=== PATIENT | female | born 1970 | race Caucasian/White ===

== ENCOUNTER 2019-06-06 11:31 | Emergency (ER) | payer BC, OTHER ==
--- OUTSIDE RECORDS SUMMARY | 2019-06-06 12:39 | XMS REPORT | Continuity of Care Document ---
:1970 External Reference #:[id number] Author Name Gail Lal D.O. (transmitted by agent of provider Herber James) Address [address] [place] [id number] Care Team Providers Name Role Phone Gail Lal DO - Internal Care Team Information Toy Consultant Medicine [facility] Care Team Information Toy Consultant [phone] Problems Active Problems Provider Date Hypothyroidism Onset: 12/10/2018 Social History Type Date Description Comments Sex Unknown ETOH Use Rarely consumes alcohol Tobacco Use Start: Unknown Patient has never smoked Recreational Drug Use Denies Drug Use Smoking Status Reviewed: 12/31/18 Patient has never smoked Allergies, Adverse Reactions, Alerts Active Allergies Reaction Severity Comments Date Codeine 12/10/2018 Wheat 12/11/2018 Barley 12/11/2018 Gluten 12/11/2018 Medications Active Medications SIG Qnty Indications Ordering Provider Date Tamoxifen Citrate 1 by mouth every Gail Lal 12/17/2018 20mg day L., D.OGildardo Tablets Levothyroxine Sodium 1 by mouth every Unknown 75mcg day Tablets Zyrtec-D Allergy & one by mouth Unknown Congestion twice a day 5-120mg Tablets ER 12HR Naproxen 1 by mouth twice Unknown 500mg Tablets a day as needed with food Celebrex 1 by mouth twice Unknown 100mg Capsules a day Aspercreme Lidocaine apply every days Unknown Max Strength for 12 hours to 4% Patches area for pain Biotin 1 by mouth every Unknown 5000mcg Capsules day Magnesium 1 by mouth every Unknown 500mg Capsules day Zinc 1 by mouth every Unknown 30mg Capsules day Vitamin B-Complex 1 by mouth every Unknown Tablets day History Medications Azithromycin two tabs (500 6tabs J06.9 Gail Lal 12/31/2018 - 250mg mg) on first L., D.O. 04/21/2019 Tablets day, then 250 mg (1 tab) x 4 days Tamoxifen Citrate 1 by mouth Gail Lal 12/10/2018 - 20mg every day L., D.O. 12/17/2018 Tablets Immunizations CPT Code Status Date Vaccine Lot # [id number] Given 11/28/2013 Tdap (Adacel) Ages 7 And Above Only [id number] Vital Signs Date Vital Result Comment 04/22/2019 8:11am Weight 121.00 lb Heart Rate 72 /min BP Systolic 118 mmHg BP Diastolic 62 mmHg Height 58 inches 4'10" BMI (Body Mass Index) 25.3 kg/m2 12/31/2018 3:38pm Body Temperature 98.8 F Weight 114.00 lb Heart Rate 78 /min BP Systolic 100 mmHg BP Diastolic 62 mmHg Height 58 inches 4'10" BMI (Body Mass Index) 23.8 kg/m2 Results Test Acquired Date Facility Test Result H/L Range Note Laboratory test 04/25/2019 [facility] Rheumatoid < 10 IU/mL Normal <15 finding Factor C Reactive Protein 2.18 mg/L Normal <8.01 TSH (Thyroid Stimulating Horm) 1.52 mcIU/mL Normal 0.34-5.60 Free T4 1.15 ng/dL High 0.61-1.12 Erythrocyte Sed Rate 4 mm/Hr Normal 0-19 Anti Double Stranded Dna AB <12.3 IU/mL 1 Anti Nuclear Antibody 0.4 U 2 Cardiolipin Igg/Igm 04/25/2019 [facility] Phospholipid Ab IgM, < 9.4 MPL 3 S Phospholipid Ab IgG < 9.4 GPL 4 Laboratory test 04/25/2019 [facility] Phospholipid Ab IgA < 9.4 APL 5 finding Laboratory test 04/22/2019 [facility] Microbiology res 6 finding <SEE NOTE> Rout Urine W/ 04/22/2019 [facility] Color YELLOW Micro -RL Appearance CLEAR Spec Grav Urine 1.016 (1.003-1.030) PH Urine 8.0 High (5.0-7.5) Leuk Esterase NEGATIVE (Neg) Nitrite Urine NEGATIVE (Neg) Protein Urine NEGATIVE (Neg) Glucose Urine NEGATIVE (Neg) Ketone Urine NEGATIVE (Neg) Urobilinogen 0.2 mg/dL (0-1.0) Bilirubin Urine NEGATIVE (Neg) Blood/HGB Urine NEGATIVE (Neg) Epithelial Cells NEGATIVE [HPF] (Neg) Hyaline Casts 1.3 [LPF] (0-5) Bacteria NEGATIVE [HPF] (Neg) Urine WBC 0.6 [HPF] (0-8) Urine RBC 1.3 [HPF] (0-3) 7 CBC Auto Diff 03/29/2019 [facility] White Blood 5.9 10^3/uL Normal 3.5-10.8 Count Red Blood Count 3.83 10^6/uL Normal 3.70-4.87 Hemoglobin 12.5 g/dL Normal 12.0-16.0 Hematocrit 35 % Normal 35-47 Mean Corpuscular Volume 91 fL Normal 80-97 Mean Corpuscular Hemoglobin 33 pg High 27-31 Mean Corpuscular HGB Conc 36 g/dL Normal 31-36 Red Cell Distribution Width 13 % Normal 10-15 Platelet Count 51 10^3/uL Low 150-450 8 Mean Platelet Volume 9.1 fL Normal 7.4-10.4 Abs Neutrophils 4.6 10^3/uL Normal 1.5-7.7 Abs Lymphocytes 0.7 10^3/uL Low 1.0-4.8 Abs Monocytes 0.4 10^3/uL Normal 0-0.8 Abs Eosinophils 0.1 10^3/uL Normal 0-0.6 Abs Basophils 0.1 10^3/uL Normal 0-0.2 Abs Nucleated RBC 0.0 10^3/uL Granulocyte % 77.5 % Lymphocyte % 12.5 % Monocyte % 7.6 % Eosinophil % 1.4 % Basophil % 1.0 % Nucleated Red Blood Cells % 0.0 Leukemia/Lymphoma Phenot 03/29/2019 [facility] Path Interpretation (SEE NOTE) 9 2-8 Marker Path Interpret 9-15 Marker TNP Path Interpret > 16 Marker TNP Myelodysplastic 03/29/2019 [facility] FMDS Specimen Bone Marrow Syndrome,Fish FMDS Disclaimer See Comment 10 FMDS Released By See Comment 11 FMDS Reason for Referral See Comment 12 FMDS Method See Comment 13 FMDS Result See Comment 14 FMDS Result Summary Normal FMDS Result Table See Comment 15 FMDS Interpretation See Comment 16 Bone Marrow Chromosomes 03/29/2019 [facility] BM Result Summary Normal BM Chromosome Specimen Bone Marrow BM Referral Reason See Comment 17 BM Chromosome Method See Comment 18 BM Chromo Banding Method See Comment 19 BM Cromosome Results 46,XX[20] BM Chromosome Interpretation See Comment 20 Released By See Comment 21 CBC Auto Diff 03/18/2019 [facility] White Blood 6.1 10^3/uL Normal 3.5-10.8 Count Red Blood Count 3.77 10^6/uL Normal 3.70-4.87 Hemoglobin 12.2 g/dL Normal 12.0-16.0 Hematocrit 35 % Normal 35-47 Mean Corpuscular Volume 92 fL Normal 80-97 Mean Corpuscular Hemoglobin 32 pg High 27-31 Mean Corpuscular HGB Conc 35 g/dL Normal 31-36 Red Cell Distribution Width 12 % Normal 10-15 Platelet Count 49 10^3/uL Low 150-450 22 Mean Platelet Volume 8.8 fL Normal 7.4-10.4 Abs Neutrophils 4.8 10^3/uL Normal 1.5-7.7 Abs Lymphocytes 0.7 10^3/uL Low 1.0-4.8 Abs Monocytes 0.4 10^3/uL Normal 0-0.8 Abs Eosinophils 0.1 10^3/uL Normal 0-0.6 Abs Basophils 0.0 10^3/uL Normal 0-0.2 Abs Nucleated RBC 0.0 10^3/uL Granulocyte % 79.5 % Lymphocyte % 11.2 % Monocyte % 7.2 % Eosinophil % 1.3 % Basophil % 0.8 % Nucleated Red Blood Cells % 0.0 Von Willebrand 03/18/2019 [facility] Coagulation F VIII 145 % 55 - 200 23 Disease Profile Activity von Willebrand Factor Antigen 130 % 55 - 200 24 von Willebrand Factor Activity 113 % 55 - 200 25 von Willebrand Disease Interpr See Comment 26 Laboratory test 03/18/2019 [facility] Coagulation 141 % Abnormal 65 - 140 27 finding Factor IX Coagulation Factor II 116 % 75 - 145 28 Factor V Activity 108 % 70 - 165 29 Coagulation Factor VII Activit 170 % 65 - 180 30 CBC Auto Diff 01/16/2019 [facility] White Blood 4.6 10^3/uL Normal 3.5-10.8 Count Red Blood Count 4.03 10^6/uL Normal 3.70-4.87 Hemoglobin 13.2 g/dL Normal 12.0-16.0 Hematocrit 37 % Normal 35-47 Mean Corpuscular Volume 92 fL Normal 80-97 Mean Corpuscular Hemoglobin 33 pg High 27-31 Mean Corpuscular HGB Conc 36 g/dL Normal 31-36 Red Cell Distribution Width 12 % Normal 10-15 Platelet Count 43 10^3/uL Low 150-450 31 Mean Platelet Volume 9.1 fL Normal 7.4-10.4 Abs Neutrophils 3.3 10^3/uL Normal 1.5-7.7 Abs Lymphocytes 0.8 10^3/uL Low 1.0-4.8 Abs Monocytes 0.3 10^3/uL Normal 0-0.8 Abs Eosinophils 0.1 10^3/uL Normal 0-0.6 Abs Basophils 0.1 10^3/uL Normal 0-0.2 Abs Nucleated RBC 0.0 10^3/uL Granulocyte % 72.1 % Lymphocyte % 17.4 % Monocyte % 6.8 % Eosinophil % 2.5 % Basophil % 1.2 % Nucleated Red Blood Cells % 0.1 Comp Metabolic Panel 01/16/2019 [facility] Sodium 141 mmol/L Normal 135-145 Potassium 3.7 mmol/L Normal 3.5-5.0 Chloride 108 mmol/L Normal 101-111 Co2 Carbon Dioxide 27 mmol/L Normal 22-32 Anion Gap 6 mmol/L Normal 2-11 Calcium 9.2 mg/dL Normal 8.6-10.3 Albumin 4.1 g/dL Normal 3.2-5.2 Total Bilirubin 0.40 mg/dL Normal 0.2-1.0 Glucose 90 mg/dL Normal 70-100 Blood Urea Nitrogen 14 mg/dL Normal 6-24 Creatinine 0.90 mg/dL Normal 0.51-0.95 BUN/Creatinine Ratio 15.6 Normal 8-20 Total Protein 5.6 g/dL Low 6.4-8.9 Globulin 1.5 g/dL Low 2-4 Albumin/Globulin Ratio 2.7 Normal 1-3 Alkaline Phosphatase 61 U/L Normal 34-104 Alt 16 U/L Normal 7-52 Ast 26 U/L Normal 13-39 Egfr Non- 66.8 >60 Egfr 80.9 >60 32 Comp Metabolic Panel 12/21/2018 [facility] Sodium 140 mmol/L Normal 135-145 Potassium 3.8 mmol/L Normal 3.5-5.0 Chloride 107 mmol/L Normal 101-111 Co2 Carbon Dioxide 29 mmol/L Normal 22-32 Anion Gap 4 mmol/L Normal 2-11 Glucose 94 mg/dL Normal 70-100 Blood Urea Nitrogen 15 mg/dL Normal 6-24 Creatinine 0.71 mg/dL Normal 0.51-0.95 BUN/Creatinine Ratio 21.1 High 8-20 Calcium 9.1 mg/dL Normal 8.6-10.3 Total Protein 5.7 g/dL Low 6.4-8.9 Albumin 3.7 g/dL Normal 3.2-5.2 Globulin 2.0 g/dL Normal 2-4 Albumin/Globulin Ratio 1.9 Normal 1-3 Total Bilirubin 0.40 mg/dL Normal 0.2-1.0 Alkaline Phosphatase 47 U/L Normal 34-104 Alt 15 U/L Normal 7-52 Ast 25 U/L Normal 13-39 Egfr Non- 87.9 >60 Egfr 106.3 >60 33 Laboratory test 12/21/2018 [facility] Uric Acid 3.9 mg/dL Normal 2.3-6.6 finding Magnesium 2.0 mg/dL Normal 1.9-2.7 CBC Auto Diff 12/21/2018 [facility] White Blood 5.5 10^3/uL Normal 3.5-10.8 Count Red Blood Count 3.74 10^6/uL Normal 3.70-4.87 Hemoglobin 12.2 g/dL Normal 12.0-16.0 Hematocrit 34 % Low 35-47 Mean Corpuscular Volume 91 fL Normal 80-97 Mean Corpuscular Hemoglobin 33 pg High 27-31 Mean Corpuscular HGB Conc 36 g/dL Normal 31-36 Red Cell Distribution Width 12 % Normal 10-15 Platelet Count 29 10^3/uL Low 150-450 34 Mean Platelet Volume 9.5 fL Normal 7.4-10.4 Abs Neutrophils 4.2 10^3/uL Normal 1.5-7.7 Abs Lymphocytes 0.8 10^3/uL Low 1.0-4.8 Abs Monocytes 0.4 10^3/uL Normal 0-0.8 Abs Eosinophils 0.1 10^3/uL Normal 0-0.6 Abs Basophils 0.0 10^3/uL Normal 0-0.2 Abs Nucleated RBC 0.0 10^3/uL Granulocyte % 75.8 % Lymphocyte % 14.4 % Monocyte % 7.5 % Eosinophil % 1.6 % Basophil % 0.7 % Nucleated Red Blood Cells % 0.0 Comprehensive Met Panel-[facility] 12/18/2018 [facility] Sodium 142 mmol/L 135- 146 35 Potassium 3.7 mmol/L 3.5-5.2 Chloride# 107 mmol/L 97-110 36 Carbon Dioxide 29 mmol/L 24-34 Calcium 8.5 mg/dL 8.5-10.5 37 Glucose 96 mg/dL 70-105 BUN 12 mg/dL 6-26 Creatinine 0.7 mg/dL 0.5-1.4 Total Protein 5.4 g/dL Low 6.0-8.0 Albumin 3.5 g/dL Low 3.6-4.9 Globulin 1.9 g/dL Low 2.0-3.5 A/G Ratio 1.8 Ratio 1.0-2.2 Total Bilirubin 0.5 mg/dL 0.1-1.3 Alkaline Phosphatase 45 U/L 24-140 Alt 14 U/L 3-42 Ast 24 U/L 8-42 Anion Gap 6 mmol/L 5-15 38 Female Egfr 96 >60 39 Male Egfr 109 >60 40 Lipid 12/18/2018 [facility] Cholesterol 176 mg/dL 50-199 Triglycerides 59 mg/dL 30-200 HDL 85 mg/dL 35-85 41 Chol/ HDL Ratio 2.1 ratio Low 3.7-5.6 VLDL 12 mg/dL 2-29 LDL (Calc) 79 mg/dL 20-99 42 Laboratory test finding 12/18/2018 [facility] TSH 0.99 uIU/mL 0.35-4.94 1 REFERENCE VALUE <30.0 (Negative) Test Performed by: [facility] [address] [place] [address] Industrial Property Appraiser: Rock Duong M.D. Ph.D.; [facility]# [id number] 2 REFERENCE VALUE <=1.0 (Negative) Test Performed by: [place] [address] Industrial Property Appraiser: Rock Duong M.D. Ph.D.; CLIA# [id number] 3 REFERENCE VALUE <15.0 (Negative) 4 REFERENCE VALUE <15.0 (Negative) Test Performed by: [place] [address] Industrial Property Appraiser: Rock Duong M.D. Ph.D.; CLIA# [id number] 5 REFERENCE VALUE <15.0 (Negative) Test Performed by: [place] [address] Industrial Property Appraiser: Rock Duong M.D. Ph.D.; CLIA# [id number] 6 Microbiology results SOURCE Clean Catch Midstream FINAL RESULT No growth 7 Unless otherwise specified, testing performed by [facility] [address] [place] [id number] 8 Consistent with Previous Results Reported on 03/18/19 9 FINAL DIAGNOSIS: Specimen Source: Bone marrow Flow cytometry immunophenotypic analysis: No immunophenotypic abnormality identified. Interpretative data: Blasts: 1% of WBCs Lymphocytes: 4% of WBCs B-cells: 2% of WBCs with no evidence of light chain restriction or other immunophenotypic abnormality. T-cells/NK cells: No aberrant population detected. Markers tested: CD3, CD10, CD16, CD19, CD34, CD45, kappa surface light chains, lambda surface light chains, 7-AAD. Quality Assessment: Acceptable Viability: Acceptable Viable lymphocytes (7-AAD): 85% Specimen received within validated guidelines. A Gonzales-Giemsa stained slide prepared from the flow cytometry specimen was examined for quality purposes. Electronically signed by: Mike Arriaza MD 04/01/19 1013 Technical component performed by: [place] [address] Setter Off: Rock Duong II, MD, PhD. CORRECTED REPORT --- Corrected on 04/01/19 1017 --- Path Inter 2-8 previously reported as: FINAL DIAGNOSIS: Specimen Source: Bone marrow Flow cytometry immunophenotypic analysis: Interpretative data: Blasts: 1% Lymphocytes: B-cells: 2% of WBCs with no evidence of light chain restriction or other immunophenotypic abnormality. T-cells/NK cells: No aberrant population detected. Markers tested: CD3, CD10, CD16, CD19, CD34, CD45, kappa surface light chains, lambda surface light chains, 7-AAD. Quality Assessment: Acceptable Viability: Acceptable Viable lymphocytes (7-AAD): 85% Specimen received within validated guidelines. A Gonzales-Giemsa stained slide prepared from the flow cytometry specimen was examined for quality purposes. Electronically signed by: Mike Arriaza MD 04/01/19 1013 Technical component performed by: [place] [address] Setter Off: Rock Duong II, MD, PhD. 10 Applicable to Analyte Specific Reagent (ASR) and Laboratory Developed Tests (LDT). This test was developed and its performance characteristics determined by [facility] in a manner consistent with CLIA requirements. It has not been cleared or approved by the U.S. Food and Drug Administration. This FISH test does not rule out other chromosome abnormalities. 11 RESULT: Johny Montoya M.D. Test Performed by: [place] [address] Industrial Property Appraiser: Rock Duong M.D. 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 14 RESULT: Interphase FISH is normal for all loci studied. 15 Abnormality Name Result Abn% Cutoff% inv(3) RPN1/MECOM fusion Normal <0.6 -5q31(Z9O834x3,EGR1x1) Normal <9.5 -5(S2X647,EGR1)x1 Normal <3.5 -7q31(D7Z1x2,U8B174g5) Normal <4.5 -7(D7Z1,H7L668)x1 Normal <3.5 +8(D8Z2,MYC)x3 Normal <2.5 11q23(MLL sep) Normal <4.0 -17p13.1(TP53x1,K52Z7a1) Normal <9.5 -17(TP53,D17Z1)x1 Normal <5.5 -20q12(C01C196g3,76medaw1) Normal <9.5 16 This result is within normal limits for the MDS FISH panel. Additional cytogenetic studies are reported separately. 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 20 No clonal abnormality was apparent. Additional cytogenetic studies are reported separately. 21 RESULT: Johny Montoya M.D. Test Performed by: [address] [address] Industrial Property Appraiser: Rock Duong M.D. Ph.D.; CLIA# [id number] 22 Consistent with Previous Results Reported on 02/01/19 23 ADDITIONAL INFORMATION This test has been modified from the fiscal analyst's instructions. Its performance characteristics were determined by [facility] in a manner consistent with CLIA requirements. This test has not been cleared or approved by the U.S. Food and Drug Administration. 24 ADDITIONAL INFORMATION This test has been modified from the fiscal analyst's instructions. Its performance characteristics were determined by [facility] in a manner consistent with CLIA requirements. This test has not been cleared or approved by the U.S. Food and Drug Administration. 25 ADDITIONAL INFORMATION This test has been modified from the fiscal analyst's instructions. Its performance characteristics were determined by [facility] in a manner consistent with CLIA requirements. This test has not been cleared or approved by the U.S. Food and Drug Administration. Test Performed by: [place] [address] Industrial Property Appraiser: Rock Duong M.D. Ph.D.; CLIA# [id number] 26 IMPRESSION: No laboratory evidence of von Willebrand disease (VWD). COMMENTS: Normal or elevated factor VIII coagulant activity and/or von Willebrand factor (VWF) antigen and/or VWF activity [latex immunoassay] provide no evidence for von Willebrand disease (VWD). NOTE: VWF antigen and/or VWF latex immunoassay activity and/or factor VIII may be increased above baseline levels by acute or chronic inflammation, stress or adrenergic stimuli, or estrogen and oral contraceptive (OCP) therapy, liver disease or recent infusion of plasma, cryoprecipitate, desmopressin (DDAVP) or VWF concentrates and mask the diagnosis of mild von Willebrand disease (VWD). Note: Apparently normal individuals of blood group "O" may have somewhat lower factor VIII and von Willebrand factor (VWF) than individuals of other blood groups, such that (for example) those of group "O" may have VWF antigen as low as 40-50%, whereas normals of nongroup "O" generally have VWF antigen above 60-70%. Suggest clinical correlation. 27 ADDITIONAL INFORMATION This test has been modified from the fiscal analyst's instructions. Its performance characteristics were determined by [facility] in a manner consistent with CLIA requirements. This test has not been cleared or approved by the U.S. Food and Drug Administration. Test Performed by: [place] [address] Industrial Property Appraiser: Rock Duong M.D. Ph.D.; CLIA# [id number] 28 ADDITIONAL INFORMATION This test has been modified from the fiscal analyst's instructions. Its performance characteristics were determined by [facility] in a manner consistent with CLIA requirements. This test has not been cleared or approved by the U.S. Food and Drug Administration. Test Performed by: [place] [address] Industrial Property Appraiser: Rock Duong M.D. Ph.D.; CLIA# [id number] 29 ADDITIONAL INFORMATION This test has been modified from the fiscal analyst's instructions. Its performance characteristics were determined by [facility] in a manner consistent with CLIA requirements. This test has not been cleared or approved by the U.S. Food and Drug Administration. Test Performed by: [place] [address] Industrial Property Appraiser: Rock Duong M.D. Ph.D.; CLIA# [id number] 30 ADDITIONAL INFORMATION This test has been modified from the fiscal analyst's instructions. Its performance characteristics were determined by [facility] in a manner consistent with CLIA requirements. This test has not been cleared or approved by the U.S. Food and Drug Administration. Test Performed by: [place] [address] Industrial Property Appraiser: Rock Duong M.D. Ph.D.; CLIA# [id number] 31 Consistent with Previous Results Reported on 01/02/19 32 Because ethnic data is not always readily available, this report includes an eGFR for both -Americans and non- Americans. The National Kidney Disease Education Program (NKDEP) does not endorse the use of the MDRD equation for patients that are not between the ages of 18 and 70, are , have extremes of body size, muscle mass, or nutritional status, or are non- or non-. According to the National Kidney Foundation, irrespective of diagnosis, the stage of the disease is based on the level of kidney function: Stage Description GFR(mL/min/1.73 m(2)) 1 Kidney damage with normal or decreased GFR 90 2 Kidney damage with mild decrease in GFR 60-89 3 Moderate decrease in GFR 30-59 4 Severe decrease in GFR 15-29 5 Kidney failure <15 (or dialysis) 33 Because ethnic data is not always readily available, this report includes an eGFR for both -Americans and non- Americans. The National Kidney Disease Education Program (NKDEP) does not endorse the use of the MDRD equation for patients that are not between the ages of 18 and 70, are , have extremes of body size, muscle mass, or nutritional status, or are non- or non-. According to the National Kidney Foundation, irrespective of diagnosis, the stage of the disease is based on the level of kidney function: Stage Description GFR(mL/min/1.73 m(2)) 1 Kidney damage with normal or decreased GFR 90 2 Kidney damage with mild decrease in GFR 60-89 3 Moderate decrease in GFR 30-59 4 Severe decrease in GFR 15-29 5 Kidney failure <15 (or dialysis) 34 Consistent with Previous Results Reported on 12/03/18 35 Updated reference range on new analyzer 36 Updated reference range on new analyzer 37 Updated reference range 07-11-2018 38 Updated Reference Range 39 Concerning GFR Guidelines for Americans: Normal function or mild renal disease, if clinically at risk: >/= 60 mL/min Moderately decreased: 30-59 Severely decreased: 15-29 Renal failure: <15 There is reduced accuracy above 60ml/min/1.73 m squared, but the numeric value may be clinically useful in the near 60 range 40 Concerning GFR Guidelines: Normal function or mild renal disease, if clinically at risk: >/= 60 mL/min Moderately decreased: 30-59 Severely decreased: 15-29 Renal failure: <15 There is reduced accuracy above 60ml/min/1.73 m squared, but the numeric value may be clinically useful in the near 60 range Glomerular Filtration Rate (GFR) is estimated based on the CKD-EPI equation, which assumes a steady state for creatinine as recommended by the National Kidney Disease Education Program in conjunction with the National Institutes of Health and the National Kidney Foundation. Clinical conditions in which it may be necessary to measure GFR by using clearance methods include extremes of age and body size, severe malnutrition or obesity, diseases of skeletal muscle, paraplegia or quadriplegia, vegetarian diet, rapidly changing kidney function, and calculation of the dose of potentially toxic drugs that are excreted by the kidneys. 41 Per NCEP ATP III Guidelines: Results lower than 40 mg/dL are suggestive of increased risk for coronary artery disease. Results > or = to 60 mg/dL are considered a negative risk factor. 42 Per NCEP ATP III Guidelines: Normal Population <130 Patients with medical conditions: CHD/DM Optimal: <100 Borderline high: 130-159 High: 160-189 Very high: >189 Procedures Date Code Description Status 09/17/2018 [id number] Mammogram Completed 09/11/2017 [id number] Mammogram Completed 08/08/2017 [id number] Mammogram Completed 09/05/2016 [id number] Mammogram Completed 02/17/2016 [id number] Bone Mineral Density Test Completed 10/03/2013 [id number] Mammogram Completed 04/03/2013 [id number] Mammogram Completed 09/07/2004 [id number] Colonoscopy Completed Medical Devices Description No Information Available Encounters Type Date Location Provider Dx Diagnosis Office Visit 04/22/2019 Gail Lal, E03.9 Hypothyroidism, 8:00a DO Gail Lal, D.O. 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 respiratory infection, unspecified Office Visit 12/17/2018 1:00p Gail Lal, E03.9 Hypothyroidism, DO Gail Lal, D.O. 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 04/22/2019 Z68.25 Body mass index (BMI) 25.0-25.9, adult Gail Lal D.O. 04/22/2019 E03.9 Hypothyroidism, unspecified [facility] 12/31/2018 J06.9 Acute upper respiratory infection, Gail Lal D.O. unspecified 12/18/2018 E03.9 Hypothyroidism, unspecified Gail Lal D.O. 12/18/2018 E03.9 Hypothyroidism, unspecified Nurse Schedule J2 12/18/2018 E03.9 Hypothyroidism, unspecified [facility] 12/17/2018 E03.9 Hypothyroidism, unspecified Gail Lal D.O. 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 12/17/2018 K90.0 Celiac disease Gail Lal D.O. 12/17/2018 M85.80 Other specified disorders of bone Gail Lal D.O. density and structure, unspecified site Plan of Treatment Future Appointment(s):12/26/2019 8:00 am - Gail Lal D.O. at [facility] DO Hali Functional Status Description No Information Available Mental Status Description No Information Available Referrals Description No Information Available
--- OUTSIDE RECORDS SUMMARY | 2019-06-06 12:40 | XMS REPORT | Summary of Care ---
:1970 Author Organization [facility] Address [address] [place] [address] Care Team Providers Name Role Phone Gail Lal DO Primary Care Provider Reason for Visit Reason Comments Thyroid Problem Encounter Details Date Type Department Care Team Description 05/17/2019 Office Visit [facility] Jesus, Ayleen, Acquired hypothyroidism (Primary Dx); [facility] Vitamin D deficiency [address] [id number] Allergies Active Allergy Reactions Severity Noted Date Comments Barley Grass 11/01/2016 Codeine Hives, Shortness Of Breath High 08/07/2012 Gluten Meal 11/01/2016 Wheat Bran 11/01/2016 documented as of this encounter (statuses as of 05/17/2019) Medications Medication Sig Dispensed Refills Start End Date Status Date Multiple Vitamin Take by mouth 0 Active (MULTIVITAMINS PO) daily Misc. Devices Use as 2 each 0 Active (DURABLE MEDICAL directed. 6 EQUIPMENT SEE SIG) compression MISCIndications: sleeve and Malignant neoplasm guantlet of upper-outer quadrant of left female breast, S/P lumpectomy, left breast tamoxifen take 1 tablet 0 Active (NOLVADEX) 20 MG by mouth once 7 tablet daily Cholecalciferol Take 5,000 0 Active (VITAMIN D PO) Units by mouth daily Biotin 5000 MCG Take 5,000 mcg 0 Active CAPS by mouth daily loratadine Take 10 mg by 0 Active (CLARITIN) 10 MG mouth daily tablet Levothyroxine Take 1 tablet 90 tablet 1 Active Sodium 75 MCG Oral by mouth daily 0 Tablet (SYNTHROID, LEVOTHROID)Indicati ons: Acquired hypothyroidism levothyroxine take 1 tablet 90 tablet 1 05/17/19 Discontinued (SYNTHROID, by mouth once 9 20 (Reorder) LEVOTHROID) 75 MCG daily tablet documented as of this encounter (statuses as of 05/17/2019) Active Problems Problem Noted Date Thrombocytopenia 03/25/2019 BreastNext negative January 2016 09/18/2018 Osteopenia of hip 04/06/2018 Personal history of malignant neoplasm of breast 03/19/2018 Use of tamoxifen (Nolvadex) 03/19/2018 At high risk for breast cancer 09/11/2017 Celiac disease 04/05/2017 Malignant neoplasm of upper-outer quadrant of left female breast 01/13/2016 Cancer Staging: Clinical: Stage IA (T1c, N0, M0) - Signed by Erica Callejas MD on 02/11/2016 Pathologic stage from 02/10/2016: Stage IA (T1c, N0(i+), cM0) - Signed by Erica Callejas MD on 02/11/2016 Breast mass, left 01/11/2016 Abnormal finding on breast imaging 01/11/2016 Dense breasts 01/15/2015 Family history of breast cancer 01/15/2015 Breast cyst 01/13/2015 Breast calcifications on mammogram 01/13/2015 Hypothyroidism 08/07/2012 Vitamin D deficiency 08/07/2012 documented as of this encounter (statuses as of 05/17/2019) Social History Tobacco Use Types Packs/Day Years Used Date Never Smoker Smokeless Tobacco: Never Used Alcohol Use Drinks/Week oz/Week Comments Yes 0 Standard drinks or equivalent 0.0 rare Sex Assigned at Date Recorded Not on file Job Start Date Occupation Industry Not on file Not on file Not on file Travel History Travel Start Travel End No recent travel history available. documented as of this encounter Last Filed Vital Signs Vital Sign Reading Time Taken Comments Blood Pressure 90/64 05/17/2019 1:07 PM EST Pulse 78 05/17/2019 1:07 PM EST Temperature - - Respiratory Rate 16 05/17/2019 1:07 PM EST Oxygen Saturation - - Inhaled Oxygen Concentration - - Weight 53.8 kg (118 lb 9.6 oz) 05/17/2019 1:07 PM EST Height 149 cm (4' 10.66") 05/17/2019 1:07 PM EST Body Mass Index 24.23 05/17/2019 1:07 PM EST documented in this encounter Progress Notes Ayleen Lee MBBS - 05/17/2019 1:00 PM EST Brittany Fitch is a 48 y.o. female who presents today for follow up of hypothyroidism. HPI: Hypothyroidism diagnosed 2007 She is taking LT4 75 mcg daily she takes it regular with water and wait 30 min before eat and drink She denies any hypo and hyperthyroid symptoms C/o extreme fatigue Also sees hematology for low platelets and received rituximab infusions in 2019. Strong family history of thyroid disease No thyorid cancer Regular periods. 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 IBS (irritable bowel syndrome) Lactose intolerance Osteopenia hip PONV (postoperative nausea and vomiting) Primary hypothyroidism 2004 Scoliosis Spinal stenosis Vitamin A deficiency Vitamin D insufficiency Past Surgical History: Procedure Laterality Date BREAST BIOPSY COLONOSCOPY INGUINAL HERNIA REPAIR 1994 LA MASTECTOMY, PARTIAL Left 02/02/2016 Procedure: LEFT BREAST NEEDLE LOC AND LUMPECTOMY, AND LEFT SENTINEL LYMPH NODE BIOPSY; Surgeon: Erica Callejas MD; Location: OR ; Service: General; Laterality: Left; TONSILLECTOMY 1995 WRIST DEBRIDEMENT Left SOCIAL HISTORY: Social History Tobacco Use Smoking status: Never Smoker Smokeless tobacco: Never Used Substance Use Topics Alcohol use: Yes Alcohol/week: 0.0 standard drinks Comment: rare Drug use: No Family History Problem Relation Age of Onset Heart disease Father Stomach cancer Maternal Grandmother 43 yrs, Stroke Maternal Grandfather Heart disease Paternal Grandmother Cancer Paternal Grandfather Breast cancer Mother Hypertension Mother Thyroid disease Mother graves Hypertension Brother Thyroid disease Sister Allergies Allergen Reactions Codeine Hives and Shortness Of Breath Barley Grass Gluten Meal Wheat Bran Current Outpatient Medications Medication Sig Dispense Refill Biotin 5000 MCG CAPS Take 5,000 mcg by mouth daily Cholecalciferol (VITAMIN D PO) Take 5,000 Units by mouth daily Levothyroxine Sodium 75 MCG Oral Tablet (SYNTHROID, LEVOTHROID) Take 1 tablet by mouth daily 90 tablet 1 loratadine (CLARITIN) 10 MG tablet Take 10 mg by mouth daily Misc. Devices (DURABLE MEDICAL EQUIPMENT SEE SIG) MISC Use as directed. compression sleeve and guantlet 2 each 0 Multiple Vitamin (MULTIVITAMINS PO) Take by mouth daily tamoxifen (NOLVADEX) 20 MG tablet take 1 tablet by mouth once daily 0 No current facility-administered medications for this visit. ROS: The full 10-point review of systems is otherwise negative except as noted in HPI. PHYSICAL EXAM: Vitals: 05/17/19 1307 BP: 90/64 BP Location: Right arm Patient Position: Sitting Cuff size: Regular Pulse: 78 Resp: 16 Weight: 53.8 kg (118 lb 9.6 oz) Height: 1.49 m (4' 10.66") Body mass index is 24.23 kg/m. Wt Readings from Last 3 Encounters: 05/17/19 53.8 kg (118 lb 9.6 oz) 03/25/19 49.9 kg (110 lb) 09/17/18 49.9 kg (110 lb) BP Readings from Last 3 Encounters: 05/17/19 90/64 03/25/19 116/72 09/17/18 102/69 GENERAL: Awake, alert and in no apparent distress EYES: conjunctivae are pink and moist, no exophthalmos, lag or stare ENT/MOUTH: dentition: ok, tongue normal THYROID: thyroid is palapble, no nodules, non-tender LYMPHATIC: no cervical or supraclavicular adenopathy CARDIOVASCULAR: regular rate and rhythm, no murmur, -ve edema RESPIRATORY: full breath sounds bilaterally with normal expansion GASTROINTESTINAL: soft, non-tender, normal bowel sounds MUSCULOSKELETAL: normal muscle mass, normal gait SKIN: no breakdown, nails ok NEUROLOGIC: PERRL, EOMI, no tremor of the outstretched hands PSYCHIATRIC: mood and affect are normal OUTSIDE RECORDS: reviewed. Pertinent positives summarized in HPI LABS: Lab Results Component Value Date CHO 199 03/30/2011 TRIG 50 03/30/2011 HDL 87 03/30/2011 LDL 102 (H) 03/30/2011 VLDL 10 (L) 03/30/2011 Lab Results Component Value Date CREATININE 0.79 08/12/2016 No components found for: EGFR No results found for: MICROALBCR Lab Results Component Value Date AST 23 08/12/2016 Lab Results Component Value Date ALT 13 08/12/2016 Lab Results Component Value Date TSH 1.640 04/06/2018 [id number] 1.23 07/27/2016 [id number] 8.18 07/27/2016 Lab Results Component Value Date FREET4 1.58 12/22/2015 Lab Results Component Value Date [id number] 24 (L) 04/06/2018 IMAGING: PATHOLOGY: A/P:This is a 48 y.o. female with a history of hypothyoridism here for follow up. 1. Hypothyroidism possibly Paul's as strong family history of autoimmune disease On Lt4 75 mcg daily She is clinically euthyroid TSH last week wnl. 2. Vitamin D deficiency On D3 5000 IU daily Will check the level in next visit 3. Celiac disease On gluten free diet 4. Osteopenia: DXA 2017 as per pt, no report seen. - continue calcium and vitamin D supplements and to obtain 1200 mg calcium and 1200 units of vitaminD daily respectively from food and supplements. - fall precautions reviewed, written information provided. - encouraged weight bearing exercises. Advised to check with pcp. RTC 1 year Orders Placed This Encounter Levothyroxine Sodium 75 MCG Oral Tablet (SYNTHROID, LEVOTHROID) documented in this encounter Plan of Treatment Date Type Specialty Care Team Description 09/23/2019 Appointment Radiology Erica Callejas MD [address] [place] [address] 09/23/2019 Appointment Radiology Erica Callejas MD [address] [place] [address] 09/23/2019 Office Visit Breast Surgery Juana Shay PA [address] [address] 05/18/2020 Office Visit Endocrinology JesusLadonnahi, JAMES [address] [place] [address] [phone] Health Maintenance Due Date Last Done Comments MMR Vaccines (1 of 1 - 09[birth year]03/1971 Standard series) Varicella Vaccines (1 of 2 - 09/03/1971 2-dose childhood series) Pneumococcal Vaccine: 1976 Pediatrics (0 to 5 Years) and At-Risk Patients (6 to 64 Years) (1 of 3 - PCV13) HIV Screening 09/03/1983 Cervical Cancer Screening 5 09/03/1991 years DTaP,Tdap,and Td Vaccines (3 05/28/2014 11/28/2013, - Td) 10/20/2009 Influenza Vaccine 12/11/2018 Pneumococcal Vaccine: 65+ 09/03/2035 Years (1 of 2 - PCV13) HIB Vaccines Aged Out No longer eligible based on patient's age to complete this topic Hepatitis A Vaccines Aged Out No longer eligible based on patient's age to complete this topic Hepatitis B Vaccines Aged Out No longer eligible based on patient's age to complete this topic IPV Vaccines Aged Out No longer eligible based on patient's age to complete this topic documented as of this encounter Implants Implanted Type 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
--- OUTSIDE RECORDS SUMMARY | 2019-06-06 12:40 | XMS REPORT | Continuity of Care Document ---
:1970 External Reference #:[id number] Author Name Gail Lal D.O. 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 [facility] Care Team Information Security Systems Technician Problems Active Problems Provider Date Hypothyroidism Onset: [...] CPT Code Status Date Vaccine Lot # [id number] Given 11/28/2013 Tdap (Adacel) Ages 7 And Above Only [id number] Vital Signs Date Vital Result Comment 04/22/2019 [...] Test Result H/L Range Note Laboratory test 04/22/2019 [facility] Urine Culture <pending> finding Rout Urine W/ Micro 04/22/2019 [facility] Color YELLOW -RL Appearance CLEAR Spec Grav Urine 1.016 [...] [HPF] (0-8) Urine RBC 1.3 [HPF] (0-3) 1 CBC Auto Diff 03/29/2019 [facility] White Blood 5.9 10^3/uL Normal 3.5-10.8 Count Red Blood Count 3.83 10^6/uL Normal 3.70-4.87 Hemoglobin 12.5 g/dL Normal 12.0-16.0 Hematocrit 35 % Normal 35-47 Mean Corpuscular Volume 91 fL Normal 80-97 Mean Corpuscular Hemoglobin 33 pg High 27-31 Mean Corpuscular HGB Conc 36 g/dL Normal 31-36 Red Cell Distribution Width 13 % Normal 10-15 Platelet Count 51 10^3/uL Low 150-450 2 Mean Platelet Volume 9.1 fL Normal 7.4-10.4 [...] Blood Cells % 0.0 Leukemia/Lymphoma Phenot 03/29/2019 [facility] Path Interpretation (SEE NOTE) 3 2-8 Marker Path Interpret 9-15 Marker TNP Path Interpret > 16 Marker TNP Myelodysplastic 03/29/2019 [facility] FMDS Specimen Bone Marrow Syndrome,Fish FMDS Disclaimer See Comment 4 FMDS Released By See Comment 5 FMDS Reason for Referral See Comment 6 FMDS Method See Comment 7 FMDS Result See Comment 8 FMDS Result Summary Normal FMDS Result Table See Comment 9 FMDS Interpretation See Comment 10 Bone Marrow Chromosomes 03/29/2019 [facility] BM Result Summary Normal BM Chromosome Specimen Bone Marrow BM Referral Reason See Comment 11 BM Chromosome Method See Comment 12 BM Chromo Banding Method See Comment 13 BM Cromosome Results 46,XX[20] BM Chromosome Interpretation See Comment 14 Released By See Comment 15 CBC Auto Diff 03/18/2019 [facility] White Blood 6.1 10^3/uL Normal 3.5-10.8 Count Red Blood Count 3.77 10^6/uL Normal 3.70-4.87 Hemoglobin 12.2 g/dL Normal 12.0-16.0 Hematocrit 35 % Normal 35-47 Mean Corpuscular Volume 92 fL Normal 80-97 Mean Corpuscular Hemoglobin 32 pg High 27-31 Mean Corpuscular HGB Conc 35 g/dL Normal 31-36 Red Cell Distribution Width 12 % Normal 10-15 Platelet Count 49 10^3/uL Low 150-450 16 Mean Platelet Volume 8.8 fL Normal 7.4-10.4 [...] Blood Cells % 0.0 Von Willebrand 03/18/2019 [facility] Coagulation F VIII 145 % 55 - 200 17 Disease Profile Activity von Willebrand Factor Antigen 130 % 55 - 200 18 von Willebrand Factor Activity 113 % 55 - 200 19 von Willebrand Disease Interpr See Comment 20 Laboratory test 03/18/2019 [facility] Coagulation 141 % Abnormal 65 - 140 21 finding Factor IX Coagulation Factor II 116 % 75 - 145 22 Factor V Activity 108 % 70 - 165 23 Coagulation Factor VII Activit 170 % 65 - 180 24 CBC Auto Diff 01/16/2019 [facility] White Blood 4.6 10^3/uL Normal 3.5-10.8 Count Red Blood Count 4.03 10^6/uL Normal 3.70-4.87 Hemoglobin 13.2 g/dL Normal 12.0-16.0 Hematocrit 37 % Normal 35-47 Mean Corpuscular Volume 92 fL Normal 80-97 Mean Corpuscular Hemoglobin 33 pg High 27-31 Mean Corpuscular HGB Conc 36 g/dL Normal 31-36 Red Cell Distribution Width 12 % Normal 10-15 Platelet Count 43 10^3/uL Low 150-450 25 Mean Platelet Volume 9.1 fL Normal 7.4-10.4 [...] Cells % 0.1 Comp Metabolic Panel 01/16/2019 [facility] Sodium 141 mmol/L Normal 135-145 Potassium 3.7 [...] Egfr Non- 66.8 >60 Egfr 80.9 >60 26 Comp Metabolic Panel 12/21/2018 [facility] Sodium 140 mmol/L Normal 135-145 Potassium 3.8 [...] Egfr Non- 87.9 >60 Egfr 106.3 >60 27 Laboratory test 12/21/2018 [facility] Uric Acid 3.9 mg/dL Normal 2.3-6.6 finding Magnesium 2.0 mg/dL Normal 1.9-2.7 CBC Auto Diff 12/21/2018 [facility] White Blood 5.5 10^3/uL Normal 3.5-10.8 Count Red Blood Count 3.74 10^6/uL Normal 3.70-4.87 Hemoglobin 12.2 g/dL Normal 12.0-16.0 Hematocrit 34 % Low 35-47 Mean Corpuscular Volume 91 fL Normal 80-97 Mean Corpuscular Hemoglobin 33 pg High 27-31 Mean Corpuscular HGB Conc 36 g/dL Normal 31-36 Red Cell Distribution Width 12 % Normal 10-15 Platelet Count 29 10^3/uL Low 150-450 28 Mean Platelet Volume 9.5 fL Normal 7.4-10.4 [...] 12/18/2018 [facility] Sodium 142 mmol/L 135- 146 29 Potassium 3.7 mmol/L 3.5-5.2 Chloride# 107 mmol/L 97-110 30 Carbon Dioxide 29 mmol/L 24-34 Calcium 8.5 mg/dL 8.5-10.5 31 Glucose 96 mg/dL 70-105 BUN 12 mg/dL 6-26 Creatinine 0.7 mg/dL 0.5-1.4 Total Protein 5.4 g/dL Low 6.0-8.0 Albumin 3.5 g/dL Low 3.6-4.9 Globulin 1.9 g/dL Low 2.0-3.5 A/G Ratio 1.8 Ratio 1.0-2.2 Total Bilirubin 0.5 mg/dL 0.1-1.3 Alkaline Phosphatase 45 U/L 24-140 Alt 14 U/L 3-42 Ast 24 U/L 8-42 Anion Gap 6 mmol/L 5-15 32 Female Egfr 96 >60 33 Male Egfr 109 >60 34 Lipid 12/18/2018 [facility] Cholesterol 176 mg/dL 50-199 Triglycerides 59 mg/dL 30-200 HDL 85 mg/dL 35-85 35 Chol/ HDL Ratio 2.1 ratio Low 3.7-5.6 VLDL 12 mg/dL 2-29 LDL (Calc) 79 mg/dL 20-99 36 Laboratory test finding 12/18/2018 [facility] TSH 0.99 uIU/mL 0.35-4.94 1 Unless otherwise specified, testing performed by [facility] [address] [place] [address] 2 Consistent with Previous Results Reported on 03/18/19 3 FINAL DIAGNOSIS: Specimen Source: Bone marrow Flow [...] MD 04/01/19 1013 Technical component performed by: [place] [address] Teacher Assistant: Rock Duong II, MD, PhD. CORRECTED REPORT [...] MD 04/01/19 1013 Technical component performed by: [place] [id number] Teacher Assistant: Rock Duong II, MD, PhD. 4 Applicable to Analyte Specific Reagent (ASR) and Laboratory Developed Tests (LDT). This test was developed and its performance characteristics determined by [facility] in a manner consistent with CLIA requirements. It has not been cleared or approved by the U.S. Food and Drug Administration. This FISH test does not rule out other chromosome abnormalities. 5 RESULT: Johny Montoya M.D. Test Performed by: [place] [id number] Heel Washer Stringing Machine Operator: Rock Duong M.D. 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 8 RESULT: Interphase FISH is normal for all loci studied. 9 Abnormality Name Result Abn% Cutoff% inv(3) RPN1/MECOM fusion Normal <0.6 -5q31(C4Z968u1,EGR1x1) Normal <9.5 -5(G7P636,EGR1)x1 Normal <3.5 -7q31(D7Z1x2,B7K190d2) Normal <4.5 -7(D7Z1,J2E433)x1 Normal <3.5 +8(D8Z2,MYC)x3 Normal <2.5 11q23(MLL sep) Normal <4.0 -17p13.1(TP53x1,B74Y1o3) Normal <9.5 -17(TP53,D17Z1)x1 Normal <5.5 -20q12(L69M256n5,95vitxg7) Normal <9.5 10 This result is within normal limits for the MDS FISH panel. Additional cytogenetic studies are reported separately. 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 14 No clonal abnormality was apparent. Additional cytogenetic studies are reported separately. 15 RESULT: Johny Montoya M.D. Test Performed by: [place] [address] Heel Washer Stringing Machine Operator: Rock Duong M.D. Ph.D.; CLIA# [id number] 16 Consistent with Previous Results Reported on 02/01/19 17 ADDITIONAL INFORMATION This test has been modified from the band instrument repairer's instructions. Its performance characteristics were determined by [facility] in a manner consistent with CLIA requirements. This test has not been cleared or approved by the U.S. Food and Drug Administration. 18 ADDITIONAL INFORMATION This test has been modified from the band instrument repairer's instructions. Its performance characteristics were determined by [facility] in a manner consistent with CLIA requirements. This test has not been cleared or approved by the U.S. Food and Drug Administration. 19 ADDITIONAL INFORMATION This test has been modified from the band instrument repairer's instructions. Its performance characteristics were determined by [facility] in a manner consistent with CLIA requirements. This test has not been cleared or approved by the U.S. Food and Drug Administration. Test Performed by: [place] [id number] Heel Washer Stringing Machine Operator: Rock Duong M.D. Ph.D.; CLIA# [id number] 20 IMPRESSION: No laboratory evidence of von Willebrand [...] VWF antigen above 60-70%. Suggest clinical correlation. 21 ADDITIONAL INFORMATION This test has been modified from the band instrument repairer's instructions. Its performance characteristics were determined by [facility] in a manner consistent with CLIA requirements. This test has not been cleared or approved by the U.S. Food and Drug Administration. Test Performed by: [facility] - [address] [address] Heel Washer Stringing Machine Operator: Rock Duong M.D. Ph.D.; CLIA# [id number] 22 ADDITIONAL INFORMATION This test has been modified from the band instrument repairer's instructions. Its performance characteristics were determined by [facility] in a manner consistent with CLIA requirements. This test has not been cleared or approved by the U.S. Food and Drug Administration. Test Performed by: [address] [id number] Heel Washer Stringing Machine Operator: Rock Duong M.D. Ph.D.; CLIA# [id number] 23 ADDITIONAL INFORMATION This test has been modified from the band instrument repairer's instructions. Its performance characteristics were determined by [facility] in a manner consistent with CLIA requirements. This test has not been cleared or approved by the U.S. Food and Drug Administration. Test Performed by: [place] [address] Heel Washer Stringing Machine Operator: Rock Duong M.D. Ph.D.; CLIA# [id number] 24 ADDITIONAL INFORMATION This test has been modified from the band instrument repairer's instructions. Its performance characteristics were determined by [facility] in a manner consistent with CLIA requirements. This test has not been cleared or approved by the U.S. Food and Drug Administration. Test Performed by: [place] [address] Heel Washer Stringing Machine Operator: Rock Duong M.D. Ph.D.; CLIA# [id number] 25 Consistent with Previous Results Reported on 01/02/19 26 Because ethnic data is not always readily [...] 15-29 5 Kidney failure <15 (or dialysis) 27 Because ethnic data is not always readily [...] 15-29 5 Kidney failure <15 (or dialysis) 28 Consistent with Previous Results Reported on 12/03/18 29 Updated reference range on new analyzer 30 Updated reference range on new analyzer 31 Updated reference range 07-11-2018 32 Updated Reference Range 33 Concerning GFR Guidelines for Americans: Normal function or mild renal disease, if clinically at risk: >/= 60 mL/min Moderately decreased: 30-59 Severely decreased: 15-29 Renal failure: <15 There is reduced accuracy above 60ml/min/1.73 m squared, but the numeric value may be clinically useful in the near 60 range 34 Concerning GFR Guidelines: Normal function or mild [...] drugs that are excreted by the kidneys. 35 Per NCEP ATP III Guidelines: Results lower than 40 mg/dL are suggestive of increased risk for coronary artery disease. Results > or = to 60 mg/dL are considered a negative risk factor. 36 Per NCEP ATP III Guidelines: Normal Population <130 Patients with medical conditions: CHD/DM Optimal: <100 Borderline high: 130-159 High: 160-189 Very high: >189 Procedures Date Code Description Status 09/17/2018 [id number] Mammogram Completed 09/11/2017 [id number] Mammogram Completed 08/08/2017 [id number] Mammogram Completed 09/05/2016 [id number] Mammogram Completed 02/17/2016 [id number] Bone Mineral Density Test Completed 10/03/2013 [id number] Mammogram Completed 04/03/2013 [id number] Mammogram Completed 09/07/2004 [id number] Colonoscopy Completed Medical Devices Description No Information Available Encounters Type Date Location Provider Dx Diagnosis Office Visit 04/22/2019 [facility]vin3.9 Hypothyroidism, 8:00a DO Gail Lal, D.O. unspecified D69.3 Immune thrombocytopenic purpura Z68.25 Body mass index (BMI) 25.0-25.9, adult Office Visit 12/31/2018 3:45p Gail Lal J06.9 Acute upper DO Gail Lal, D.OGildardo respiratory infection, unspecified Office Visit 12/17/2018 1:00p [facility] Colvin3.9 Hypothyroidism, DO Gail Lal, D.OGildardo unspecified D69.3 Immune thrombocytopenic purpura K90.0 Celiac disease M85.80 Oth disrd of bone density and structure, unspecified site Assessments Date Code Description Provider 04/22/2019 E03.9 Hypothyroidism, unspecified Gail Lal, D.OGildardo 04/22/2019 D69.3 Immune thrombocytopenic purpura Gail Lal D.OGildardo 04/22/2019 Z68.25 Body mass index (BMI) 25.0-25.9, adult Gail Lal, D.OGildardo 12/31/2018 J06.9 Acute upper respiratory infection, Gail Lal, D.O. unspecified 12/18/2018 E03.9 Hypothyroidism, unspecified Gail Lal, D.O. 12/18/2018 E03.9 Hypothyroidism, unspecified Nurse Schedule [...] 8:00 am - Gail Lal D.O. at [facility], DO04/22/2019 - Gail Lal D.O.E03.9 Hypothyroidism, [id number] Immune thrombocytopenic [id number] Body mass index (BMI) 25.0-25.9, adult Functional Status Description No Information Available Mental Status Description No Information Available Referrals Description No Information Available
--- NOTE | 2019-06-06 13:03 | UC ---
Respiratory Complaint HPI - HPI Summary HPI Summary: 48 yo female presents with URI symptoms. She tells me that 2 days ago she developed nausea, body aches, sinus congestion, runny nose, sore throat, and dry cough. Yesterday states her chest feels tight with some feelings of shortness of breath. She called her PCP this morning and had a telehealth visit and was advised to come here to have testing for COVID, strep, and flu. Tmax 99.3F. She has been taking mucinex with little change in her symptoms. She does not smoke. No recent travel. No known exposure to COVID. Denies fever, chills, chest pain, abdominal pain, vomiting, diarrhea, dysuria, back pain. PMHx ITP and BRCA. - History of Current Complaint Chief Complaint: UCRespiratory Stated Complaint: COUGH Time Seen by Provider: 06/06/19 13:01 Hx Obtained From: Patient Hx Last Menstrual Period: 05/12/19 Severity Initially: Moderate Severity Currently: Moderate Pain Intensity: 6 Pain Scale Used: 0-10 Numeric - Allergies/Home Medications Allergies/Adverse Reactions: Allergies Allergy/AdvReac Type Severity Reaction Status Date / Time codeine Allergy Severe Rash And Verified 06/06/19 12:44 Itching gluten Allergy Diarrhea Verified 06/06/19 12:44 Home Medications: Home Medications Cetirizine* [ZyrTEC*] 10 mg PO DAILY PRN 02/17/16 [History Confirmed 06/06/19] Cholecalciferol (Vitamin D3) [Vitamin D] 2,000 unit PO DAILY 02/17/16 [History Confirmed 06/06/19] Levothyroxine Sodium [Levoxyl] 75 mcg PO DAILY 02/17/16 [History Confirmed 06/05] Biotin 1 tab PO DAILY 06/06/19 [History Confirmed 06/06/19] Calcium Carbonate [Calcium] 1 tab PO DAILY 06/06/19 [History Confirmed 06/06/19] Mucinex Dm ER 1,200-60 mg Tab 1 dose PO ONCE PRN 06/06/19 [History Confirmed ] Multivitamin [One-Daily Multi-Vitamin] 1 tab PO DAILY 06/06/19 [History Confirmed 06/06/19] Tamoxifen TAB* [Nolvadex 10 MG*] 20 mg PO DAILY 06/06/19 [History Confirmed ] PMH/Surg Hx/FS Hx/Imm Hx - Additional Past Medical History Additional PMH: ITP BRCA Endocrine History: Hypothyroidism - Surgical History Surgical History: Yes Surgery Procedure, Year, and Place: Inguinal hernia right 1994, tonsillectomy and adenoidectomy 1995, Left wrist ligament debridement 2011, 3 cortisone injections neck [id number], left breast lumpectomy Jan 2016 - Family History Known Family History: Positive: Unknown - Social History Lives: With Family Alcohol Use: Occasionally Substance Use Type: None Smoking Status (MU): Never Smoked Tobacco Review of Systems All Other Systems Reviewed And Are Negative: No Constitutional: Positive: Fatigue, Other - Body aches Skin: Positive: Negative Eyes: Positive: Negative ENT: Positive: Sore Throat Respiratory: Positive: Cough Cardiovascular: Positive: Negative Gastrointestinal: Positive: Nausea Genitourinary: Positive: Negative Neurological/Mental Status: Positive: Negative Psychological: Positive: Negative Physical Exam - Summary Physical Exam Summary: GENERAL: NAD. WDWN. No pain distress. SKIN: No rashes, sores, or open wounds. HEENT: Head: AT/NC Eyes: PERRLA. EOM intact. Conjunctiva clear without inflammation or discharge. Ears: Hearing grossly normal. TMs intact, no bulging, erythema, or edema. Nose: Nasal mucosa pink and moist. NTTP maxillary and frontal sinus. Throat: Posterior oropharynx without exudates, erythema, or tonsillar enlargement. Uvula midline. NECK: Supple. Nontender. No lymphadenopathy. CHEST: CTAB. No r/r/w. No accessory muscle use. Breathing comfortably and in no distress. CV: RRR. Pulses intact. Brisk cap refill. NEURO: Alert. PSYCH: Age appropriate behavior. Triage Information Reviewed: Yes Vital Signs: Vital Signs: Temp Pulse Resp BP Pulse Ox 99.3 F 83 18 121/62 97 06/06/19 13:11 06/06/19 13:11 06/06/19 13:11 06/06/19 13:11 06/06/19 13:11 Laboratory Tests 06/06/19 06/06/19 13:11 13:22 Influenza A (Rapid) Negative Influenza B (Rapid) Negative Group A Strep Rapid Negative Vital Signs Reviewed: Yes Diagnostics - Radiology CXR Radiology Interpretation Completed By: Radiologist Summary of Radiographic Findings: IMPRESSION: HYPERINFLATION, CONSISTENT WITH COPD. NO ACTIVE CARDIOPULMONARY DISEASE. Respiratory Course/Dx - Course Course Of Treatment: POC strep and flu negative. CXR negative. Given symptoms and comorbidities she was tested for COVID today. Exam performed utilizing CDC recommended PPE. You are being tested for COVID-19. You need to quarantine yourself in a bedroom and bathroom only you are using. You may not leave the house. [facility] will contact you and notify of results when they are available. Advised to be on home isolation until cleared by the health department (3-6 days likely) Go to ED for increased SOB or any difficulty breathing - new or worsening symptoms. - Differential Dx/Diagnosis Provider Diagnosis: Cough Discharge ED - Sign-Out/Discharge Documenting (check all that apply): Patient Departure All imaging exams completed and their final reports reviewed: Yes - Discharge Plan Condition: Stable Disposition: HOME Forms: COVID-19 Tested & Isolation Referrals: Gail Lal DO [Primary Care Provider] - Additional Instructions: STREP, FLU, AND CHEST X-RAY ALL NORMAL/NEGATIVE TODAY You are being tested for COVID-19. You need to quarantine yourself in a bedroom and bathroom only you are using. You may not leave the house. [facility] will contact you and notify of results when they are available. Advised to be on home isolation until cleared by the health department (3-6 days likely) Go to ED for increased SOB or any difficulty breathing - new or worsening symptoms. - Billing Disposition and Condition Condition: STABLE Disposition: Home - Attestation Statements Provider Attestation: This patient was not seen by me. Chart reviewed. RAFAEL
[2019-06-06 13:12] VITALS: BP 121/62
[2019-06-06 13:24] LABS: Influenza A Molecular Negative (Negative); Influenza B Molecular Negative (Negative)
== END 2019-06-06 14:10 | disposition home or self-care (01) ==
LOC: UCEAST 11:31
DX: R05 Cough (principal); R53.83 Other fatigue; M79.10 Myalgia, unspecified site; J02.9 Acute pharyngitis, unspecified; Z20.828 Contact with and (suspected) exposure to other viral communicable diseases; E03.9 Hypothyroidism, unspecified; Z79.890 Hormone replacement therapy; Z88.5 Allergy status to narcotic agent; Z91.018 Allergy to other foods
CPT/HCPCS: 71046; 87635; 87651; 99211; G0463